=== PATIENT | female | born 1985 | race African-American/Black ===

== ENCOUNTER 2017-03-19 09:00 | Emergency (ER) | payer SELFPAY ==
[~2017-03-19] VITALS: Ht 167.6 cm; Wt 68.0 kg
[2017-03-19 09:18] VITALS: BP 120/64
--- NOTE | 2017-03-19 09:18 | PHYS DOC ---
Adult General Chief Complaint Chief Complaint: BACK PAIN OR INJURY [facility] HPI Patient is a 31 year old -[place] female who presents with diffuse muscle aches around her back. 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 She states she is on her feet a lot extends to have pain from her neck all the way down. She denies any numbness or tingling in arms or legs weakness or saddle anesthesia or bladder dysfunction. She states she's been using Excedrin over the years and now it isn't working anymore. She does have [place] [facility] [place] She denies being on any medicines allergic to any medicines or any surgical history. Review of Systems Review of Systems Constitutional: Denies fever or chills [] Eyes: Denies change in visual acuity, redness, or eye pain [] HENT: Denies nasal congestion or sore throat [] Respiratory: Denies cough or shortness of breath [] Cardiovascular: No additional information not addressed in HPI [] GI: Denies abdominal pain, nausea, vomiting, bloody stools or diarrhea [] : Denies dysuria or hematuria [] Musculoskeletal: Denies back pain or joint pain [] Integument: Denies rash or skin lesions [] Neurologic: Denies headache, focal weakness or sensory changes [] Endocrine: Denies polyuria or polydipsia [] Allergies Allergies Allergies Coded Allergies Type Severity Reaction Last Updated Verified No Known Drug Allergies 03/19/17 No Physical Exam Physical Exam Constitutional: Well developed, well nourished, no acute distress, non-toxic appearance. [] HENT: Normocephalic, atraumatic, bilateral external ears normal, oropharynx moist, no oral exudates, nose normal. [] Eyes: PERRLA, EOMI, conjunctiva normal, no discharge. [] Neck: Normal range of motion, no midline tenderness, mild tender palpation paraspinally, supple, no stridor. [] Cardiovascular:Heart rate regular rhythm, no murmur [] Lungs & Thorax: Bilateral breath sounds clear to auscultation [] Abdomen: Bowel sounds normal, soft, no tenderness, no masses, no pulsatile masses. [] Skin: Warm, dry, no erythema, no rash. [] Back: No midline tenderness, tender palpation paraspinally, no CVA tenderness. [ ] Extremities: No tenderness, no cyanosis, no clubbing, ROM intact, no edema. [] Neurologic: Alert and oriented X 3, normal motor function, normal sensory function, no focal deficits noted. [] Psychologic: Affect normal, judgement normal, mood normal. [] Current Patient Data Vital Signs Vital Signs Date Time Temp Pulse Resp B/P (MAP) Pulse Ox O2 Delivery O2 Flow Rate FiO2 03/19/17 09:18 99.6 76 18 99 Room Air 99.6 EKG EKG [] Radiology/Procedures Radiology/Procedures [] Impressions: Muscle spasms in her back Course & Med Decision Making Course & Med Decision Making Pertinent Labs and Imaging studies reviewed. (See chart for details) She is instructed use 600 mg of Motrin every 8 hours for next 3-5 days. She is also try Flexeril. She is warned not to drive or taking Flexeril as it can impair judgment and make her sleepy. She is to follow-up with her primary care physician. Return precautions given for worsening pain, fevers, weakness in her arms or legs or urinary incontinence. Dragon Disclaimer Dragon Disclaimer This electronic medical record was generated, in whole or in part, using a voice recognition dictation system. Departure Departure Impression: Primary Impression: Muscle spasm Disposition: 01 HOME, SELF-CARE Condition: STABLE Patient Instructions: Back Pain, Adult, [id number] Additional Instructions: Your symptoms sound muscle skeletal in nature. You can try 600 mg of Advil every 8 hours for next 3-5 days. Be sure to make sure not while taking this medicine. You can also try Flexeril which is a muscle relaxant and you can take it prior to going to bed as there is a side effect of causing sleepiness. Don't drink alcohol or goat driver a car while taking this medicine as it can make you sleepy and impair your judgment. If you have severe pain, weakness in your arms legs or numbness please return back to emergency department for further evaluation and treatment. You will need follow-up with your primary care physician within the next 1-2 weeks. Scripts Cyclobenzaprine Hcl (CYCLOBENZAPRINE HCL) 10 Mg Tablet 1 TAB PO QHS Y for MUSCLE PAIN, #20 TAB Prov: EDMAR OVALLE MD 03/19/17 EDMAR OVALLE MD Mar 19, 2017 09:18
[2017-03-19] MEDS ORDERED: CYCL10TA2 PO (09:34)
== END 2017-03-19 09:51 | disposition home or self-care (01) ==
LOC: ER 09:00
DX: M62.830 Muscle spasm of back (principal)
CPT/HCPCS: 99283

== ENCOUNTER 2017-06-02 10:35 | Emergency (ER) | payer SELFPAY ==
[~2017-06-02 10:35] MED LIST: CYCL10TA2 PO
[2017-06-02] MEDS ORDERED: IV NORMAL SALINE 1000ML BAG 1,000 ML IV ONE (11:00)
[2017-06-02 11:04] LABS: BASO # 0.1 x10^3/uL (0.0-0.2); BASO % 1 % (0-3); EOS % 1 % (0-3); HEMOGLOBIN 12.9 g/dL (12.0-15.5); LYMPH # 2.3 x10^3/uL (1.0-4.8); LYMPH % 25 % (24-48); MEAN CORPUSCULAR HEMOGLOBIN 29 pg (25-35); MEAN CORPUSCULAR HGB CONC 33 g/dL (31-37); MEAN CORPUSCULAR VOLUME 88 fL (79-100); MONO % 6 % (0-9); NEUT % 67 % (31-73); PLATELET COUNT 205 x10^3/uL (140-400); RED BLOOD COUNT 4.44 x10^6/uL (3.50-5.40); RED CELL DISTRIBUTION WIDTH 13.4 % (11.5-14.5); WHITE BLOOD COUNT 9.1 x10^3/uL (4.0-11.0)
[2017-06-02 11:06] LABS: BILIRUBIN,URINE NEGATIVE (NEG); GLUCOSE,URINE NEGATIVE (NEG); NITRITE,URINE NEGATIVE (NEG); PROTEIN,URINE NEGATIVE (NEG-TRACE); UROBILINOGEN,URINE 0.2 mg/dL (0.2 mg/dL)
[2017-06-02 11:12] LABS: BARBITURATES NEG (NEG); BENZODIAZEPINES NEG (NEG); CANNABINOIDS NEG (NEG); COCAINE NEG (NEG); METHADONE NEG (NEG); OPIATES NEG (NEG); PHENCYCLIDINE NEG (NEG)
[2017-06-02 11:13] LABS: INR 1.1 (0.8-1.1); PROTHROMBIN TIME PATIENT 13.4 SEC (11.7-14.0)
[2017-06-02 11:15] LABS: CALCIUM 9.2 mg/dL (8.5-10.1); CREATININE 0.9 mg/dL (0.6-1.0); GFR 89.6; POTASSIUM 3.5 mmol/L (3.5-5.1)
[2017-06-02 11:16] LABS: SQUAMOUS EPITHELIAL CELL,UR MOD /LPF
[2017-06-02 11:17] LABS: BACTERIA,URINE MANY /HPF (0-FEW); RBC,URINE OCC /HPF (0-2)
[2017-06-02 11:21] LABS: ALBUMIN 4.5 g/dL (3.4-5.0); ALBUMIN/GLOBULIN RATIO 1.2 (1.0-1.7); MAGNESIUM 2.3 mg/dL (1.8-2.4); TOTAL BILIRUBIN 1.2 mg/dL (0.2-1.0); TOTAL PROTEIN 8.3 g/dL (6.4-8.2)
--- NOTE | 2017-06-02 11:28 | EKG ---
[facility] [address] [place] [address] Test Date: 2017-06-02 Test Time: 10:47:32 Pat Name: NIC DAVID Department: Room: Gender: F Telephone Recorder: : [id number] Requested By: MONIE HANSON Order Number: [id number] Reading MD: Daniel Moon Measurements Intervals Bailey Rate: 91 P: 35 ND: 138 QRS: 62 QRSD: 88 T: 42 QT: 374 QTc: 462 Interpretive Statements SINUS RHYTHM INCOMPLETE RIGHT BUNDLE BRANCH BLOCK Electronically Signed On 06-07-2017 16:42:46 CHIEF MEDICAL OFFICER by Daniel Moon
[2017-06-02 11:33] LABS: CKMB MASS < 0.5 ng/mL (0.0-3.6); CREATINE KINASE 225 U/L (26-192)
--- NOTE | 2017-06-02 11:39 | PHYS DOC ---
Past Medical History Past Medical History: No Pertinent History Past Surgical History: No Surgical History Alcohol Use: None Drug Use: None Adult General Chief Complaint Chief Complaint: DIZZY/LIGHT HEADED HPI HPI Patient is a 31 year old female with history of anxiety who presents today complaining of dizziness on movement. 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 Patient denies passing out. Denies any chest pain or shortness of breath. She states her dizziness is relieved by sitting. Denies any chance she is . One week Review of Systems Review of Systems Constitutional: Denies fever or chills [] Eyes: Denies change in visual acuity, redness, or eye pain [] HENT: Denies nasal congestion or sore throat [] Respiratory: Denies cough or shortness of breath [] Cardiovascular: No additional information not addressed in HPI [] GI: Denies abdominal pain, nausea, vomiting, bloody stools or diarrhea [] : Denies dysuria or hematuria [] Musculoskeletal: Denies back pain or joint pain [] Integument: Denies rash or skin lesions [] Neurologic: Dizziness. Denies headache, focal weakness or sensory changes [] All other systems were reviewed and found to be within normal limits, except as documented in this note. Current Medications Current Medications Current Medications Medications (Trade) Dose Ordered Sig/[facility] Start Time Stop Time Status Last Admin Dose Admin Sodium Chloride 1,000 ml @ 1,000 mls/hr 1X ONCE 06/02/17 11:00 06/02/17 11:59 DC 06/02/17 12:03 1,000 MLS/HR Allergies Allergies Allergies Coded Allergies Type Severity Reaction Last Updated Verified No Known Drug Allergies 03/19/17 No Physical Exam Physical Exam Constitutional: Well developed, well nourished, no acute distress, non-toxic appearance. [] HENT: Normocephalic, atraumatic, bilateral external ears normal, oropharynx moist, no oral exudates, nose normal. [] Eyes: PERRLA, EOMI, conjunctiva normal, no discharge. [] Neck: Normal range of motion, no tenderness, supple, no stridor. [] Cardiovascular:Heart rate regular rhythm, no murmur [] Lungs & Thorax: Bilateral breath sounds clear to auscultation [] Abdomen: Bowel sounds normal, soft, no tenderness, no masses, no pulsatile masses. [] Skin: Warm, dry, no erythema, no rash. [] Back: No tenderness, no CVA tenderness. [] Extremities: No tenderness, no cyanosis, no clubbing, ROM intact, no edema. [] Neurologic: Alert and oriented X 3, normal motor function, normal sensory function, no focal deficits noted. Cranial nerves II through XII intact Psychologic: Affect normal, judgement normal, mood normal. [] Current Patient Data Lab Values Laboratory Tests Test 06/02/17 10:44 06/02/17 10:48 06/02/17 10:50 Urine Collection Type Void Urine Color Yellow Urine Clarity Clear Urine pH 7.0 Urine Specific [place] 1.020 Urine Protein Negative mg/dL (NEG-TRACE) Urine Glucose (UA) Negative mg/dL (NEG) Urine Ketones (Stick) Negative mg/dL (NEG) Urine Blood Small (NEG) Urine Nitrite Negative (NEG) Urine Bilirubin Negative (NEG) Urine Urobilinogen Dipstick 0.2 mg/dL (0.2 mg/dL) Urine Leukocyte Esterase Negative (NEG) Urine RBC Occ /HPF (0-2) Urine WBC 1-4 /HPF (0-4) Urine Squamous Epithelial Cells Mod /LPF Urine Bacteria Many /HPF (0-FEW) Urine Mucus Marked /LPF Urine Opiates Screen Neg (NEG) Urine Methadone Screen Neg (NEG) Urine Barbiturates Neg (NEG) Urine Phencyclidine Screen Neg (NEG) Urine Amphetamine/Methamphetamine Neg (NEG) Urine Benzodiazepines Screen Neg (NEG) Urine Cocaine Screen Neg (NEG) Urine Cannabinoids Screen Neg (NEG) Urine Ethyl Alcohol Neg (NEG) POC Urine HCG, Qualitative Hcg negative (Negative) White Blood Count 9.1 x10^3/uL (4.0-11.0) Red Blood Count 4.44 x10^6/uL (3.50-5.40) Hemoglobin 12.9 g/dL (12.0-15.5) Hematocrit 39.0 % (36.0-47.0) Mean Corpuscular Volume 88 fL (79-100) Mean Corpuscular Hemoglobin 29 pg (25-35) Mean Corpuscular Hemoglobin Concent 33 g/dL (31-37) Red Cell Distribution Width 13.4 % (11.5-14.5) Platelet Count 205 x10^3/uL (140-400) Neutrophils (%) (Auto) 67 % (31-73) Lymphocytes (%) (Auto) 25 % (24-48) Monocytes (%) (Auto) 6 % (0-9) Eosinophils (%) (Auto) 1 % (0-3) Basophils (%) (Auto) 1 % (0-3) Neutrophils # (Auto) 6.1 x10^3uL (1.8-7.7) Lymphocytes # (Auto) 2.3 x10^3/uL (1.0-4.8) Monocytes # (Auto) 0.5 x10^3/uL (0.0-1.1) Eosinophils # (Auto) 0.1 x10^3/uL (0.0-0.7) Basophils # (Auto) 0.1 x10^3/uL (0.0-0.2) Prothrombin Time 13.4 SEC (11.7-14.0) Prothrombin Time INR 1.1 (0.8-1.1) Sodium Level 141 mmol/L (136-145) Potassium Level 3.5 mmol/L (3.5-5.1) Chloride Level 106 mmol/L (98-107) Carbon Dioxide Level 27 mmol/L (21-32) Anion Gap 8 (6-14) Blood Urea Nitrogen 10 mg/dL (7-20) Creatinine 0.9 mg/dL (0.6-1.0) Estimated GFR (Cockcroft-Gault) 89.6 BUN/Creatinine Ratio 11 (6-20) Glucose Level 73 mg/dL (70-99) Calcium Level 9.2 mg/dL (8.5-10.1) Magnesium Level 2.3 mg/dL (1.8-2.4) Total Bilirubin 1.2 mg/dL (0.2-1.0) H Aspartate Amino Transferase (AST) 14 U/L (15-37) L Alanine Aminotransferase (ALT) 18 U/L (14-59) Alkaline Phosphatase 51 U/L (46-116) Creatine Kinase 225 U/L (26-192) H Creatine Kinase MB (Mass) < 0.5 ng/mL (0.0-3.6) Creatine Kinase MB Relative Index % (0-4) Troponin I Quantitative < 0.017 ng/mL (0.000-0.055) JH-Zsq-G-Type Natriuretic Peptide 17 pg/mL (0-124) Total Protein 8.3 g/dL (6.4-8.2) H Albumin 4.5 g/dL (3.4-5.0) Albumin/Globulin Ratio 1.2 (1.0-1.7) Lipase 260 U/L (73-393) Thyroid Stimulating Hormone (TSH) 0.587 uIU/mL (0.358-3.74) Laboratory Tests 06/02/17 10:50 Laboratory Tests 06/02/17 10:50 EKG EKG 10:[address] [facility], HR 91 no STEMI[] Radiology/Procedures Radiology/Procedures [] Course & Med Decision Making Course & Med Decision Making Pertinent Labs and Imaging studies reviewed. (See chart for details) Patient is in the ED with dizziness on ambulation that began at work. She states she is feeling better in the ED. She's been given 1 L of IV fluid. Patient's labs are negative. Will be discharged with meclizine, instructions to push fluids, change positions slowly and follow up with the PCP. Provided return precautions and discharged in stable condition. Dragon Disclaimer Dragon Disclaimer This electronic medical record was generated, in whole or in part, using a voice recognition dictation system. Departure Departure Impression: Primary Impression: Dizziness Disposition: 01 HOME, SELF-CARE Condition: STABLE Referrals: NO PCP (PCP) follow up with your doctor in one week Patient Instructions: Dizziness, [id number] Additional Instructions: You were seen with dizziness, your labs are negative for any acute findings. Change positions slowly. Push fluids. Follow-up with your doctor in 1-2 weeks. Scripts Meclizine Hcl (MECLIZINE HCL) 12.5 Mg Tablet 1 TAB PO TID Y for DIZZINESS, #15 TAB 0 Refills Prov: JACKIAlejoMONIE APRN 06/02/17 MONIE HANSON APRN Jun 02, 2017 11:39
--- NOTE | 2017-06-02 11:43 | RAD ---
Portable chest, 06/02/2017: History: Dizziness The heart size and pulmonary vascularity are normal. The lungs are clear. There is no evidence of pleural fluid. IMPRESSION: No acute cardiopulmonary abnormality is detected.
[2017-06-02] MEDS ORDERED: MECL12.52 PO (12:32)
[2017-06-02 12:40] VITALS: BP 108/64
== END 2017-06-02 12:45 | disposition home or self-care (01) ==
LOC: ER 10:35
DX: R42 Dizziness and giddiness (principal); F41.9 Anxiety disorder, unspecified
CPT/HCPCS: 36415; 71010; 80053; 80307; 81001; 81025; 82553; 83690; 83735; 83880; 84443; 84484; 85025; 85610; 93005; 99285; J7030; G0479

== ENCOUNTER 2017-08-25 18:32 | Emergency (ER) | payer SELFPAY, OTHER ==
[2017-08-25 18:59] LABS: BILIRUBIN,URINE NEGATIVE (NEG); CLARITY,URINE CLEAR; COLOR,URINE YELLOW; GLUCOSE,URINE NEGATIVE (NEG); NITRITE,URINE NEGATIVE (NEG); PROTEIN,URINE NEGATIVE (NEG-TRACE)
[2017-08-25 19:05] LABS: BACTERIA,URINE MOD /HPF (0-FEW); SQUAMOUS EPITHELIAL CELL,UR MANY /LPF; WBC,URINE 0 /HPF (0-4)
[2017-08-25] MEDS: AZITHROMYCIN 250 MG TABLET. PO ×2 (19:27)
[2017-08-25] MEDS: metroNIDAZOLE 500 MG TABLET PO ×2 (19:28)
[2017-08-25] MEDS: cefTRIAXone IM 250 MG VIAL IM ×2 (19:29)
[2017-08-27 07:15] LABS: URINE HCG POC HCG NEGATIVE (Negative)
== END 2017-08-25 19:40 | disposition home or self-care (01) ==
LOC: ER 18:32
DX: N89.8 Other specified noninflammatory disorders of vagina (principal)
CPT/HCPCS: 81001; 81025; 87491; 87591; 96372; 99284-25; J0696; Q0144

== ENCOUNTER 2017-11-22 08:29 | Emergency (ER) | payer SELFPAY | END 2017-11-22 09:00 | disposition home or self-care (01) | LOC: ER 08:29 | DX: K02.9 Dental caries, unspecified (principal) | CPT/HCPCS: 99283 ==

== ENCOUNTER 2018-02-26 14:24 | Emergency (ER) | payer SELFPAY ==
[~2018-02-26] VITALS: Ht 167.6 cm; Wt 68.0 kg
[~2018-02-26 14:24] MED LIST changes: +CLIN300C8 PO; +DOXY100T PO; +HYDR-971 PO; +MECL12.52 PO
[2018-02-26 14:43] VITALS: BP 114/64
[2018-02-26 15:02] LABS: BILIRUBIN,URINE NEGATIVE (NEG); CLARITY,URINE CLOUDY; COLOR,URINE YELLOW; NITRITE,URINE NEGATIVE (NEG); PROTEIN,URINE NEGATIVE (NEG-TRACE)
[2018-02-26 15:05] LABS: U PREG PATIENT NEGATIVE (NEG)
[2018-02-26 15:25] LABS: BACTERIA,URINE MANY /HPF (0-FEW); RBC,URINE OCC /HPF (0-2); SQUAMOUS EPITHELIAL CELL,UR MANY /LPF
[2018-02-26] MEDS ORDERED: cefTRIAXone IM 250 MG VIAL IM ONE (16:00)
[2018-02-26] MEDS ORDERED: AZITHROMYCIN 250 MG TABLET. PO ONE (16:00)
[2018-02-26] MEDS ORDERED: CEPH500C PO (17:32)
[2018-02-26] MEDS ORDERED: METR500T PO (17:32)
--- NOTE | 2018-02-26 17:34 | PHYS DOC ---
Past Medical History Past Medical History: No Pertinent History Past Surgical History: No Surgical History Alcohol Use: Occasionally Drug Use: None Adult General Chief Complaint Chief Complaint: PAIN ON URINATION HPI HPI Patient is a 32 year old [f__sex] who presents with [] Review of Systems Review of Systems Constitutional: Denies fever or chills [] Eyes: Denies change in visual acuity, redness, or eye pain [] HENT: Denies nasal congestion or sore throat [] Respiratory: Denies cough or shortness of breath [] Cardiovascular: No additional information not addressed in HPI [] GI: Denies abdominal pain, nausea, vomiting, bloody stools or diarrhea [] : Denies dysuria or hematuria [] Musculoskeletal: Denies back pain or joint pain [] Integument: Denies rash or skin lesions [] Neurologic: Denies headache, focal weakness or sensory changes [] Endocrine: Denies polyuria or polydipsia [] All other systems were reviewed and found to be within normal limits, except as documented in this note. Current Medications Current Medications Current Medications Medications (Trade) Dose Ordered Sig/Saiam Start Time Stop Time Status Last Admin Dose Admin Azithromycin (Zithromax) 1,000 mg 1X ONCE 02/26/18 16:00 02/26/18 16:01 DC 02/26/18 16:49 1,000 MG Ceftriaxone Sodium (Rocephin Im) 250 mg 1X ONCE 02/26/18 16:00 02/26/18 16:01 DC 02/26/18 16:50 250 MG Allergies Allergies Allergies Coded Allergies Type Severity Reaction Last Updated Verified No Known Drug Allergies 03/19/17 No Physical Exam Physical Exam Constitutional: Well developed, well nourished, no acute distress, non-toxic appearance. [] HENT: Normocephalic, atraumatic, bilateral external ears normal, oropharynx moist, no oral exudates, nose normal. [] Eyes: PERRLA, EOMI, conjunctiva normal, no discharge. [] Neck: Normal range of motion, no tenderness, supple, no stridor. [] Cardiovascular:Heart rate regular rhythm, no murmur [] Lungs & Thorax: Bilateral breath sounds clear to auscultation [] Abdomen: Bowel sounds normal, soft, no tenderness, no masses, no pulsatile masses. [] Skin: Warm, dry, no erythema, no rash. [] Back: No tenderness, no CVA tenderness. [] Extremities: No tenderness, no cyanosis, no clubbing, ROM intact, no edema. [] Neurologic: Alert and oriented X 3, normal motor function, normal sensory function, no focal deficits noted. [] Psychologic: Affect normal, judgement normal, mood normal. [] Current Patient Data Vital Signs Vital Signs Date Time Temp Pulse Resp B/P (MAP) Pulse Ox O2 Delivery O2 Flow Rate FiO2 02/26/18 14:43 98.5 81 14 114/64 (81) Room Air 98.5 Lab Values Laboratory Tests Test 02/26/18 14:33 Urine Collection Type Unknown Urine Color Yellow Urine Clarity Cloudy Urine pH 7.0 Urine Specific [place] 1.025 Urine Protein Negative mg/dL (NEG-TRACE) Urine Glucose (UA) Negative mg/dL (NEG) Urine Ketones (Stick) Trace mg/dL (NEG) Urine Blood Negative (NEG) Urine Nitrite Negative (NEG) Urine Bilirubin Negative (NEG) Urine Urobilinogen Dipstick 1.0 mg/dL (0.2 mg/dL) Urine Leukocyte Esterase Moderate (NEG) Urine RBC Occ /HPF (0-2) Urine WBC 5-10 /HPF (0-4) Urine Squamous Epithelial Cells Many /LPF Urine Bacteria Many /HPF (0-FEW) Urine Mucus Mod /LPF Urine Test Negative (NEG) Microbiology 02/26/18 Wet Prep - Final, Complete EKG EKG [] Radiology/Procedures Radiology/Procedures 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 (See chart for details) [] Dragon Disclaimer Dragon Disclaimer This electronic medical record was generated, in whole or in part, using a voice recognition dictation system. Departure Departure Impression: Primary Impression: Urinary tract infection Additional Impressions: Bacterial vaginosis Contact with and (suspected) exposure to infections with a predominantly sexual mode of transmission Disposition: HOME, SELF-CARE Condition: STABLE Referrals: UNKNOWN PCP NAME (PCP) Patient Instructions: Bacterial Vaginosis, [id number], Sexually Transmitted Disease, Ecri-[id number], Urinary Tract Infection, Eucf-[id number] Additional Instructions: Fill Prescriptions and use as directed. You were treated prophylactically for a sexually transmitted infection. Avoid having intercourse until the results of gonorrhea and chlamydia testing are available. These results will not be available for 48 hours. If one or both of these tests is positive, you need to refrain from intercourse for approximately 2 weeks following the treatment of any current partners. Increase fluids, follow up with your Primary care provider in 1-2 days. Return to the ER if your symptoms worsen. Scripts Cephalexin (CEPHALEXIN) 500 Mg Capsule 1 CAP PO BID for 5 Days, #10 CAP 0 Refills Prov: JOHN WHITT APRN 02/26/18 Metronidazole (FLAGYL) 500 Mg Tablet 1 TAB PO BID for 7 Days, #14 TAB 0 Refills Prov: JOHN WHITT APRN 02/26/18 Problem Qualifiers JOHN WHITT APRN Feb 26, 2018 17:34
[2018-02-28 15:26] LABS: GC PROBE Negative (Negative)
== END 2018-02-26 17:44 | disposition home or self-care (01) ==
LOC: ER 14:24
DX: N39.0 Urinary tract infection, site not specified (principal); N76.0 Acute vaginitis; B96.89 Other specified bacterial agents as the cause of diseases classified elsewhere; Z20.2 Contact with and (suspected) exposure to infections with a predominantly sexual mode of transmission
CPT/HCPCS: 81001; 81025; 87086; 87491; 87591; 96372; 99284; J0696; Q0111; Q0144

== ENCOUNTER 2018-05-02 08:51 | Emergency (ER) | payer SELFPAY ==
[~2018-05-02] VITALS: Ht 167.6 cm; Wt 70.3 kg
[~2018-05-02 08:51] MED LIST changes: +CEPH500C PO; +METR500T PO
[2018-05-02 08:55] VITALS: BP 116/73
[2018-05-02] MEDS ORDERED: cefTRIAXone IM 250 MG VIAL IM ONE (09:15)
[2018-05-02] MEDS ORDERED: AZITHROMYCIN 250 MG TABLET. PO ONE (09:15)
[2018-05-02] MEDS ORDERED: metroNIDAZOLE 500 MG TABLET PO ONE (09:15)
--- NOTE | 2018-05-02 09:22 | PHYS DOC ---
Past Medical History Past Medical History: No Pertinent History Past Surgical History: No Surgical History Alcohol Use: Occasionally Drug Use: None Adult General Chief Complaint Chief Complaint: ABDOMINAL PAIN HPI HPI Patient is a 32 year old female with no significant medical history who presents today complaining of 8 out of 10 intermittent throbbing bilateral low back pain and pelvic pain with vaginal discharge for 1 week. Patient is concerned about STDs would like to be tested and treated. Denies any chance she is . She states she has the Implanon. Review of Systems Review of Systems Constitutional: Denies fever or chills [] Eyes: Denies change in visual acuity, redness, or eye pain [] HENT: Denies nasal congestion or sore throat [] Respiratory: Denies cough or shortness of breath [] Cardiovascular: No additional information not addressed in HPI [] GI: Reports pelvic pain, denies nausea, vomiting, bloody stools or diarrhea [] : Denies dysuria or hematuria [] Musculoskeletal: Reports low back pain, denies joint pain [] Integument: Denies rash or skin lesions [] Neurologic: Denies headache, focal weakness or sensory changes [] All other systems were reviewed and found to be within normal limits, except as documented in this note. Current Medications Current Medications Current Medications Medications (Trade) Dose Ordered Sig/Saima Start Time Stop Time Status Last Admin Dose Admin Azithromycin (Zithromax) 1,000 mg 1X ONCE 05/02/18 09:15 05/02/18 09:16 DC 05/02/18 09:24 1,000 MG Ceftriaxone Sodium (Rocephin Im) 250 mg 1X ONCE 05/02/18 09:15 05/02/18 09:16 DC 05/02/18 09:24 250 MG Metronidazole (Flagyl) 2,000 mg 1X ONCE 05/02/18 09:15 05/02/18 09:16 DC 05/02/18 09:23 2,000 MG Allergies Allergies Allergies Coded Allergies Type Severity Reaction Last Updated Verified No Known Drug Allergies 03/19/17 No Physical Exam Physical Exam Constitutional: Well developed, well nourished, no acute distress, non-toxic appearance. [] HENT: Normocephalic, atraumatic, bilateral external ears normal, oropharynx moist, no oral exudates, nose normal. [] Eyes: PERRLA, EOMI, conjunctiva normal, no discharge. [] Neck: Normal range of motion, no tenderness, supple, no stridor. [] Cardiovascular:Heart rate regular rhythm, no murmur [] Lungs & Thorax: Bilateral breath sounds clear to auscultation [] Abdomen: Bowel sounds normal, soft, no tenderness, no masses, no pulsatile masses. [] Pelvic exam External pelvic appears normal, cervix is closed, no CMT, no adnexal tenderness , trace amount of brownish discharge in the vaginal vault consistent with spotting. Skin: Warm, dry, no erythema, no rash. [] Back: No tenderness, no CVA tenderness. [] Extremities: No tenderness, no cyanosis, no clubbing, ROM intact, no edema. [] Neurologic: Alert and oriented X 3, normal motor function, normal sensory function, no focal deficits noted. [] Psychologic: Affect normal, judgement normal, mood normal. [] Current Patient Data Vital Signs Vital Signs Date Time Temp Pulse Resp B/P (MAP) Pulse Ox O2 Delivery O2 Flow Rate FiO2 05/02/18 08:55 98.5 89 17 116/73 (87) 100 Room Air 98.5 Lab Values Laboratory Tests Test 05/02/18 09:00 05/02/18 09:04 Urine Collection Type Unknown Urine Color Yellow Urine Clarity Cloudy Urine pH 5.5 Urine Specific [place] 1.025 Urine Protein Negative mg/dL (NEG-TRACE) Urine Glucose (UA) Negative mg/dL (NEG) Urine Ketones (Stick) Negative mg/dL (NEG) Urine Blood Large (NEG) Urine Nitrite Negative (NEG) Urine Bilirubin Negative (NEG) Urine Urobilinogen Dipstick 0.2 mg/dL (0.2 mg/dL) Urine Leukocyte Esterase Small (NEG) Urine RBC 0 /HPF (0-2) Urine WBC 5-10 /HPF (0-4) Urine Squamous Epithelial Cells Mod /LPF Urine Bacteria Many /HPF (0-FEW) POC Urine HCG, Qualitative Hcg negative (Negative) Microbiology 05/02/18 Wet Prep - Final, Complete EKG EKG [] Radiology/Procedures Radiology/Procedures [] Course & Med Decision Making Course & Med Decision Making Pertinent Labs and Imaging studies reviewed. (See chart for details) This is a 32-year-old female patient presenting to the ED today with pelvic pain and low back pain as well as concern for STDs. Patient was treated prophylaxis. STD education provided. Urine has small amount of leukocytes, urine also noted for moderate amount of squamous cells, this is a contaminated specimen. Wet prep is negative for any acute findings. Follow-up with PCP or OB/ RESEARCH MICROBIOLOGIST in 1-2 weeks. Tylenol or Motrin for pain. Staff Physician Addendum: I was working in the ER during the course of this patient's visit. I was available for consultation as needed, but I was not directly involved in the care of this patient. Dragon Disclaimer Dragon Disclaimer This electronic medical record was generated, in whole or in part, using a voice recognition dictation system. Departure Departure Impression: Primary Impression: Concern about STD in female without diagnosis Additional Impression: Low back pain Disposition: 01 HOME, SELF-CARE Condition: STABLE Referrals: UNKNOWN PCP NAME (PCP) Follow-up in 1-2 weeks with your own doctor or the health department as needed Patient Instructions: Back Pain, Adult Additional Instructions: You were evaluated in the emergency room for back pain and vaginal discharge as well as pelvic pain. You were treated prophylaxis for sexually transmitted diseases, do not have sex for 7 days, use protection at all times, contact all your sex partners, let them know you were treated for STDs and ask them to seek treatment too. Follow-up with your own doctor or the health department for further concerns. Problem Qualifiers Additional Impression: Low back pain Chronicity: acute Back pain laterality: bilateral Sciatica presence: without sciatica Qualified Codes: M54.5 - Low back pain VALENTINMONIE VALERIO May 02, 2018 09:22 MEENAKSHI HERNANDEZ MD May 02, 2018 16:59
[2018-05-02 09:38] LABS: BILIRUBIN,URINE NEGATIVE (NEG); CLARITY,URINE CLOUDY; NITRITE,URINE NEGATIVE (NEG); PH,URINE 5.5; PROTEIN,URINE NEGATIVE (NEG-TRACE); UROBILINOGEN,URINE 0.2 mg/dL (0.2 mg/dL)
[2018-05-02 09:46] LABS: COLOR,URINE YELLOW; SQUAMOUS EPITHELIAL CELL,UR MOD /LPF
[2018-05-02 09:47] LABS: BACTERIA,URINE MANY /HPF (0-FEW); RBC,URINE 0 /HPF (0-2)
[2018-05-03 14:27] LABS: GC PROBE Negative (Negative)
== END 2018-05-02 10:30 | disposition home or self-care (01) ==
LOC: ER 08:51
DX: M54.5 Low back pain (principal); Z20.2 Contact with and (suspected) exposure to infections with a predominantly sexual mode of transmission; R10.2 Pelvic and perineal pain; N89.8 Other specified noninflammatory disorders of vagina
CPT/HCPCS: 81001; 81025; 87491; 87591; 96372; 99284; J0696; Q0111; Q0144; 87086

== ENCOUNTER 2018-09-20 16:26 | Emergency (ER) | payer OTHER ==
[~2018-09-20] VITALS: Ht 167.6 cm; Wt 73.9 kg
[~2018-09-20 16:26] MED LIST changes: +HYDR-3164 PO; -HYDR-971 PO
--- NOTE | 2018-09-20 16:39 | PHYS DOC ---
Past Medical History Past Medical History: No Pertinent History Past Surgical History: No Surgical History Alcohol Use: Occasionally Drug Use: None Adult General Chief Complaint Chief Complaint: FOOT INJURY PAIN HPI HPI Patient is a 32 year old female presented ER today for evaluation of right foot injury at work today. Patient was working with a tomato slicer, when it fell on Her Right Foot. Patient Had Been Walking All Day, Hurt When She Walked. Review of Systems Review of Systems Constitutional: Denies fever or chills [] Eyes: Denies change in visual acuity, redness, or eye pain [] HENT: Denies nasal congestion or sore throat [] Respiratory: Denies cough or shortness of breath [] Cardiovascular: No additional information not addressed in HPI [] GI: Denies abdominal pain, nausea, vomiting, bloody stools or diarrhea [] : Denies dysuria or hematuria [] Musculoskeletal: Denies back pain, POSITIVE FOR PAIN IN RIGHT FOOT. Integument: Denies rash or skin lesions [] Neurologic: Denies headache, focal weakness or sensory changes [] Endocrine: Denies polyuria or polydipsia [] All other systems were reviewed and found to be within normal limits, except as documented in this note. Allergies Allergies Allergies Coded Allergies Type Severity Reaction Last Updated Verified No Known Drug Allergies 03/19/17 No Physical Exam Physical Exam Constitutional: Well developed, well nourished, no acute distress, non-toxic appearance. [] HENT: Normocephalic, atraumatic, bilateral external ears normal, oropharynx moist, no oral exudates, nose normal. [] Eyes: PERRLA, EOMI, conjunctiva normal, no discharge. [] Neck: Normal range of motion, no tenderness, supple, no stridor. [] Cardiovascular:Heart rate regular rhythm, no murmur [] Lungs & Thorax: Bilateral breath sounds clear to auscultation [] ] Skin: Warm, dry, no erythema, no rash. [] Extremities: There is tenderness to palpation at the RIGHT first the metatarsal bone, NO SWELLING, NO OPEN WOUND. Neurologic: Alert and oriented X 3, normal motor function, normal sensory function, no focal deficits noted. [] Psychologic: Affect normal, judgement normal, mood normal. [] Current Patient Data Vital Signs Vital Signs Date Time Temp Pulse Resp B/P (MAP) Pulse Ox O2 Delivery O2 Flow Rate FiO2 3/19/19 16:40 98.6 81 16 110/68 (82) 100 Room Air 98.6 EKG EKG [] Radiology/Procedures Radiology/Procedures [][facility] [address] [place] [address] IMAGING REPORT Signed PATIENT: NIC DAVID ACCOUNT: [id number] : 1985 LOCATION: ER AGE: 32 SEX: F EXAM STATUS: REG ER ORD. PHYSICIAN: CARLOS BARAHONA DO REASON: right foot injury, a tomato slicer dropped on her foot this AM AT WORK PROCEDURE: FOOT RIGHT 3V EXAM: AP, oblique and lateral views of the right foot DATE: 09/20/2018 4:35 PM INDICATION: right foot injury, a tomato slicer dropped on her foot this AM AT WORK COMPARISON: No Prior FINDINGS: No evidence of acute fracture or dislocation. Joint spaces are preserved without significant degenerative/proliferative change. Mild soft tissue swelling about the forefoot. No definite retained radiopaque foreign body. IMPRESSION: Soft tissue swelling without retained radiopaque foreign body or fracture. If there is persistent clinical concern for fracture, follow-up radiographs in 10-14 days is recommended. Electronically signed by: Reji Hickey MD (09/20/2018 5:05 PM) [id number] DICTATED and SIGNED BY: REJI HICKEY MD DATE: 09/20/18 1464 Course & Med Decision Making Course & Med Decision Making Pertinent Labs and Imaging studies reviewed. (See chart for details) [] Dragon Disclaimer Dragon Disclaimer This electronic medical record was generated, in whole or in part, using a voice recognition dictation system. Departure Departure Impression: Primary Impression: Contusion of right foot Disposition: HOME, SELF-CARE Condition: STABLE Referrals: NO PCP (PCP) FOLLOW UP WITH YOUR DOCTOR IN 2 WEEKS FOR REPEAT XRAY OF YOUR RIGHT FOOT IF YOU CONTINUES TO HAVE PAIN. Patient Instructions: Foot Contusion CARLOS BARAHONA DO Sep 20, 2018 16:39
[2018-09-20 16:40] VITALS: BP 110/68
--- NOTE | 2018-09-20 17:08 | RAD ---
EXAM: AP, oblique and lateral views of the right foot DATE: 09/20/2018 4:35 PM INDICATION: right foot injury, a tomato slicer dropped on her foot this AM AT WORK COMPARISON: No Prior FINDINGS: No evidence of acute fracture or dislocation. Joint spaces are preserved without significant degenerative/proliferative change. Mild soft tissue swelling about the forefoot. No definite retained radiopaque foreign body. IMPRESSION: Soft tissue swelling without retained radiopaque foreign body or fracture. If there is persistent clinical concern for fracture, follow-up radiographs in 10-14 days is recommended. Electronically signed by: Reji Hickey MD (09/20/2018 5:05 PM) [id number]
== END 2018-09-20 17:50 | disposition home or self-care (01) ==
LOC: ER 16:26
DX: S90.31XA Contusion of right foot, initial encounter (principal); W20.8XXA Other cause of strike by thrown, projected or falling object, initial encounter; Y93.89 Activity, other specified; Y92.89 Other specified places as the place of occurrence of the external cause; Y99.0 Civilian activity done for income or pay
CPT/HCPCS: 73630; 99283; 99284

== ENCOUNTER 2019-04-18 13:54 | Emergency (ER) | payer MEDICAID, OTHER ==
[~2019-04-18] VITALS: Ht 167.6 cm; Wt 76.2 kg
[2019-04-18] MEDS ORDERED: IV NORMAL SALINE 1000ML BAG 1,000 ML IV SCH (14:36)
--- NOTE | 2019-04-18 14:38 | PHYS DOC ---
Past Medical History Past Medical History: No Pertinent History Past Surgical History: No Surgical History Alcohol Use: Occasionally Drug Use: None Adult General Chief Complaint Chief Complaint: PELVIC PAIN HPI HPI Patient is a 33 year old female who presents with complaining of abdominal pain. Patient complaining of sudden onset of suprapubic pain that started about 2 hours prior to arrival to ER as a constant pain with radiation to her back and rated her pain 10 over 10.. Patient had 2 episodes of diarrhea after arrival to ER. She denies nausea and vomiting, fever and chills, urinary symptoms, . Patient states she ate at [employer] this morning and has concern for food poisoning. Review of Systems Review of Systems Constitutional: Denies fever or chills [] Eyes: Denies change in visual acuity, redness, or eye pain [] HENT: Denies nasal congestion or sore throat [] Respiratory: Denies cough or shortness of breath [] Cardiovascular: No additional information not addressed in HPI [] GI: Reports abdominal pain, diarrhea , denies nausea and vomiting[] : Denies dysuria or hematuria [] Musculoskeletal: Denies back pain or joint pain [] Integument: Denies rash or skin lesions [] Neurologic: Denies headache, focal weakness or sensory changes [] Endocrine: Denies polyuria or polydipsia [] All other systems were reviewed and found to be within normal limits, except as documented in this note. Current Medications Current Medications Current Medications Medications (Trade) Dose Ordered Sig/Saima Start Time Stop Time Status Last Admin Dose Admin Ceftriaxone Sodium (Rocephin) 1 gm 1X ONCE 04/18/19 16:00 04/18/19 16:01 DC Ketorolac Tromethamine (Toradol 30mg Vial) 30 mg 1X ONCE 04/18/19 16:00 04/18/19 16:01 DC Sodium Chloride 1,000 ml @ 1,000 mls/hr Q1H 04/18/19 14:36 04/18/19 15:35 DC Allergies Allergies Allergies Coded Allergies Type Severity Reaction Last Updated Verified No Known Drug Allergies 03/19/17 No Physical Exam Physical Exam Constitutional: Well developed, well nourished, mild distress, non-toxic appearance. [] HENT: Normocephalic, atraumatic. Eyes: PERRLA, EOMI, conjunctiva normal, no discharge. [] Neck: Normal range of motion, no tenderness, supple, no stridor. [] Cardiovascular:Heart rate regular rhythm, no murmur [] Lungs & Thorax: Bilateral breath sounds clear to auscultation [] Abdomen: Bowel sounds normal, soft, no tenderness, no masses, no pulsatile masses. [] Skin: Warm, dry, no erythema, no rash. [] Back: No tenderness, no CVA tenderness. [] Extremities: No tenderness, no cyanosis, no clubbing, ROM intact, no edema. [] Neurologic: Alert and oriented X 3, no focal deficits noted. [] Psychologic: Affect normal, judgement normal, mood normal. [] Current Patient Data Vital Signs Vital Signs Date Time Temp Pulse Resp B/P (MAP) Pulse Ox O2 Delivery O2 Flow Rate FiO2 04/18/19 14:36 97.7 80 16 124/77 (93) 96 Room Air 97.7 Lab Values Laboratory Tests Test 04/18/19 12:50 04/18/19 14:23 04/18/19 14:26 White Blood Count 7.4 x10^3/uL (4.0-11.0) Red Blood Count 4.67 x10^6/uL (3.50-5.40) Hemoglobin 13.6 g/dL (12.0-15.5) Hematocrit 41.1 % (36.0-47.0) Mean Corpuscular Volume 88 fL (79-100) Mean Corpuscular Hemoglobin 29 pg (25-35) Mean Corpuscular Hemoglobin Concent 33 g/dL (31-37) Red Cell Distribution Width 13.4 % (11.5-14.5) Platelet Count 209 x10^3/uL (140-400) Neutrophils (%) (Auto) 68 % (31-73) Lymphocytes (%) (Auto) 23 % (24-48) L Monocytes (%) (Auto) 6 % (0-9) Eosinophils (%) (Auto) 2 % (0-3) Basophils (%) (Auto) 0 % (0-3) Neutrophils # (Auto) 5.1 x10^3/uL (1.8-7.7) Lymphocytes # (Auto) 1.7 x10^3/uL (1.0-4.8) Monocytes # (Auto) 0.5 x10^3/uL (0.0-1.1) Eosinophils # (Auto) 0.1 x10^3/uL (0.0-0.7) Basophils # (Auto) 0.0 x10^3/uL (0.0-0.2) Sodium Level 140 mmol/L (136-145) Potassium Level 4.0 mmol/L (3.5-5.1) Chloride Level 102 mmol/L (98-107) Carbon Dioxide Level 27 mmol/L (21-32) Anion Gap 11 (6-14) Blood Urea Nitrogen 9 mg/dL (7-20) Creatinine 0.9 mg/dL (0.6-1.0) Estimated GFR (Cockcroft-Gault) 88.4 BUN/Creatinine Ratio 10 (6-20) Glucose Level 91 mg/dL (70-99) Calcium Level 8.8 mg/dL (8.5-10.1) Total Bilirubin 0.6 mg/dL (0.2-1.0) Aspartate Amino Transferase (AST) 21 U/L (15-37) Alanine Aminotransferase (ALT) 15 U/L (14-59) Alkaline Phosphatase 66 U/L (46-116) Total Protein 8.8 g/dL (6.4-8.2) H Albumin 4.6 g/dL (3.4-5.0) Albumin/Globulin Ratio 1.1 (1.0-1.7) Lipase 222 U/L (73-393) Urine Color Yellow Urine Clarity Clear Urine pH 8.0 Urine Specific Julian 1.020 Urine Protein Negative mg/dL (NEG-TRACE) Urine Glucose (UA) Negative mg/dL (NEG) Urine Ketones (Stick) Negative mg/dL (NEG) Urine Blood Large (NEG) Urine Nitrite Negative (NEG) Urine Bilirubin Negative (NEG) Urine Urobilinogen Dipstick 1.0 mg/dL (0.2 mg/dL) Urine Leukocyte Esterase Moderate (NEG) Urine RBC 3-5 /HPF (0-2) Urine WBC 20-40 /HPF (0-4) Urine Squamous Epithelial Cells Occ /LPF Urine Bacteria Many /HPF (0-FEW) Urine Mucus Mod /LPF POC Urine HCG, Qualitative Hcg negative (Negative) Laboratory Tests 04/18/19 12:50 Laboratory Tests 04/18/19 12:50 EKG EKG [] Radiology/Procedures Radiology/Procedures [] Course & Med Decision Making Course & Med Decision Making Pertinent Labs reviewed. (See chart for details) Evaluation of patient in ER showed 33-year-old female patient with complaining of sudden onset of abdominal pain and 2 episodes of diarrhea. Patient had unremarkable physical exam and labs except for UTI. Patient states she just treated for UTI last week with Bactrim. Patient treated with IV fluid, Toradol, Rocephin with improvement of her condition. I've spoken with the patient and/or caregivers. I've explained the patient's condition, diagnosis and treatment plan based on information available to me at this time. I've answered the patient's and/or caregivers questions and addressed any concerns. The patient and/or caregivers have a good understanding the patient's diagnosis, condition and treatment plan as can be expected at this point. Vital signs have been stabilized. The patient's condition is stable for discharge from the emergency department. The patient will pursue further outpatient evaluation with her primary care provider or other designated consulting physician as outlined in the discharge instructions. Patient and/or caregivers are agreeable to this plan of care and follow-up instructions have been explained in detail. The patient and/or caregivers have received these instructions in written format and expressed understanding of these discharge instructions. The patient and her caregivers are aware that if any significant change in condition or worsening of symptoms should prompt him to immediately return to this of the closest emergency department. If an emergent department is not readily available I would encourage him to call 911. Tamra Disclaimer Tamra Disclaimer This electronic medical record was generated, in whole or in part, using a voice recognition dictation system. Departure Departure Impression: Primary Impression: Food poisoning Additional Impression: Urinary tract infection Disposition: HOME, SELF-CARE (at 1638) Condition: IMPROVED Referrals: NO PCP (PCP) Patient Instructions: Diarrhea, Food Poisoning, Urinary Tract Infection Additional Instructions: Drink plenty of liquids Follow-up with your primary care physician in 3-5 days Return to ER if not getting better Do not eat solid food today Scripts Naproxen (NAPROSYN) 500 Mg Tablet 1 TAB PO BID for pain, #20 TAB Prov: JANET MUSTAFA MD 04/18/19 Ciprofloxacin Hcl (CIPRO) 250 Mg Tablet 1 TAB PO BID for infection, #14 TAB Prov: JANET MUSTAFA MD 04/18/19 Problem Qualifiers Additional Impression: Urinary tract infection Urinary tract infection type: site unspecified Hematuria presence: without hematuria Qualified Codes: N39.0 - Urinary tract infection, site not specified JANET MUSTAFA MD Apr 18, 2019 14:38
[2019-04-18 14:51] LABS: BILIRUBIN,URINE NEGATIVE (NEG); CLARITY,URINE CLEAR; COLOR,URINE YELLOW; NITRITE,URINE NEGATIVE (NEG); PROTEIN,URINE NEGATIVE (NEG-TRACE)
[2019-04-18 14:57] LABS: BACTERIA,URINE MANY /HPF (0-FEW); SQUAMOUS EPITHELIAL CELL,UR OCC /LPF
[2019-04-18 14:58] LABS: WBC,URINE 20-40 /HPF (0-4)
[2019-04-18 15:30] VITALS: BP 125/72
[2019-04-18 15:30] LABS: BASO % 0 % (0-3); EOS # 0.1 x10^3/uL (0.0-0.7); EOS % 2 % (0-3); HEMATOCRIT 41.1 % (36.0-47.0); HEMOGLOBIN 13.6 g/dL (12.0-15.5); LYMPH # 1.7 x10^3/uL (1.0-4.8); LYMPH % 23 % (24-48); MEAN CORPUSCULAR HEMOGLOBIN 29 pg (25-35); MEAN CORPUSCULAR HGB CONC 33 g/dL (31-37); MEAN CORPUSCULAR VOLUME 88 fL (79-100); MONO # 0.5 x10^3/uL (0.0-1.1); MONO % 6 % (0-9); NEUT # 5.1 x10^3/uL (1.8-7.7); NEUT % 68 % (31-73); PLATELET COUNT 209 x10^3/uL (140-400); RED BLOOD COUNT 4.67 x10^6/uL (3.50-5.40); RED CELL DISTRIBUTION WIDTH 13.4 % (11.5-14.5); WHITE BLOOD COUNT 7.4 x10^3/uL (4.0-11.0)
[2019-04-18 15:40] LABS: CALCIUM 8.8 mg/dL (8.5-10.1); CREATININE 0.9 mg/dL (0.6-1.0); GFR 88.4
[2019-04-18 15:45] LABS: ALBUMIN 4.6 g/dL (3.4-5.0); ALBUMIN/GLOBULIN RATIO 1.1 (1.0-1.7); TOTAL BILIRUBIN 0.6 mg/dL (0.2-1.0); TOTAL PROTEIN 8.8 g/dL (6.4-8.2)
[2019-04-18] MEDS ORDERED: KETOROLAC 30 MG/ML VIAL. IVP ONE (16:00)
[2019-04-18] MEDS ORDERED: cefTRIAXone IV Push 1 GM VIAL. IVP ONE (16:00)
[2019-04-18] MEDS ORDERED: NAPR-683 PO (16:39)
[2019-04-18] MEDS ORDERED: CIPR250T30 PO (16:39)
== END 2019-04-18 17:49 | disposition home or self-care (01) ==
LOC: ER 13:54
DX: A05.9 Bacterial foodborne intoxication, unspecified (principal); N39.0 Urinary tract infection, site not specified; R19.7 Diarrhea, unspecified
CPT/HCPCS: 36415; 80053; 81001; 81025; 83690; 85025; 87086; 96360; 99284; J7030

== ENCOUNTER 2019-05-24 08:14 | Emergency (ER) | payer MEDICAID ==
[~2019-05-24] VITALS: Ht 167.6 cm; Wt 70.8 kg
[~2019-05-24 08:14] MED LIST changes: +CIPR250T30 PO; +NAPR-683 PO
[2019-05-24 08:31] VITALS: BP 117/77
[2019-05-24] MEDS ORDERED: ALBU2.5V8 IH (09:13)
[2019-05-24] MEDS ORDERED: TRAM-48 PO (09:13)
[2019-05-24] MEDS ORDERED: BENZ100C PO (09:13)
[2019-05-24] MEDS ORDERED: AZIT250T PO (09:13)
--- NOTE | 2019-05-24 09:13 | PHYS DOC ---
Past Medical History Past Medical History: No Pertinent History Past Surgical History: No Surgical History Alcohol Use: Occasionally Drug Use: None Adult General Chief Complaint Chief Complaint: EARACHE/EAR PAIN HPI HPI Patient is a 33 year old none smoking female without history of medical problem who presents with complaint of cough and earache. Patient complaining of nonproductive cough, chest soreness and throat, sinus pressure pain and left ear pain for the last 2 days without fever, vomiting, myalgia, sick contact. Patient denies . Review of Systems Review of Systems Constitutional: Denies fever or chills [] Eyes: Denies change in visual acuity, redness, or eye pain [] HENT: Denies nasal congestion, reports earache and sore throat [] Respiratory: Denies shortness of breath, reports cough [] Cardiovascular: No additional information not addressed in HPI [] GI: Denies abdominal pain, nausea, vomiting, bloody stools or diarrhea [] : Denies dysuria or hematuria [] Musculoskeletal: Denies back pain or joint pain [] Integument: Denies rash or skin lesions [] Neurologic: Denies headache, focal weakness or sensory changes [] Endocrine: Denies polyuria or polydipsia [] All other systems were reviewed and found to be within normal limits, except as documented in this note. Allergies Allergies Allergies Coded Allergies Type Severity Reaction Last Updated Verified No Known Drug Allergies 03/19/17 No Physical Exam Physical Exam Constitutional: Well developed, well nourished, mild distress, non-toxic appearance. [] HENT: Normocephalic, atraumatic, left tympanic membrane erythema and tenderness, oropharynx moist, no oral exudates, nose normal. [] Eyes: PERRLA, EOMI, conjunctiva normal, no discharge. [] Neck: Normal range of motion, no tenderness, supple, no stridor. [] Cardiovascular:Heart rate regular rhythm, no murmur [] Lungs & Thorax: Bilateral breath sounds clear to auscultation [] Extremities: No tenderness, no cyanosis, no clubbing, ROM intact, no edema. [] Neurologic: Alert and oriented X 3, normal motor function, normal sensory function, no focal deficits noted. [] Psychologic: Affect normal, judgement normal, mood normal. [] Current Patient Data Vital Signs Vital Signs Date Time Temp Pulse Resp B/P (MAP) Pulse Ox O2 Delivery O2 Flow Rate FiO2 05/24/19 08:31 98.6 100 16 117/77 (90) 98 Room Air 98.6 EKG EKG [] Radiology/Procedures Radiology/Procedures [] Course & Med Decision Making Course & Med Decision Making Evaluation of patient in ER showed 33-year-old female patient with complaining of URI symptom and pain. Patient had left tympanic membrane erythema. Patient was afebrile. Plan to discharge patient home with diagnosis of URI and otitis media and prescription of antibiotic. I've spoken with the patient and/or caregivers. I've explained the patient's condition, diagnosis and treatment plan based on information available to me at this time. I've answered the patient's and/or caregivers questions and addressed any concerns. The patient and/or caregivers have a good understanding the dominic leggett's diagnosis, condition and treatment plan as can be expected at this point. Vital signs have been stabilized. The patient's condition is stable for discharge from the emergency department. The patient will pursue further outpatient evaluation with her primary care provider or other designated consulting physician as outlined in the discharge instructions. Patient and/or caregivers are agreeable to this plan of care and follow-up instructions have been explained in detail. The patient and/or caregivers have received these instructions in written format and expressed understanding of these discharge instructions. The patient and her caregivers are aware that if any significant change in condition or worsening of symptoms should prompt him to immediately return to this of the closest emergency department. If an emergent department is not readily available I would encourage him to call 911. Tamra Disclaimer Dragon Disclaimer This electronic medical record was generated, in whole or in part, using a voice recognition dictation system. Departure Departure Impression: Primary Impression: Left otitis media Additional Impression: Upper respiratory infection Disposition: HOME, SELF-CARE (at 0909) Condition: STABLE Referrals: NO PCP (PCP) Patient Instructions: Cough, Adult, Otitis Media, Adult, Upper Respiratory Infection, Adult Additional Instructions: Drink plenty of liquids Follow-up with your primary care physician in 3-5 days Return to ER if not getting better Scripts Azithromycin (ZITHROMAX) 250 Mg Tablet 250 MG PO DAILY for ANTI-BIOTIC, #6 TAB 0 Refills Take 2 pills by mouth for the first day and then Take 1 pill by mouth every 24 hours for the next 4 days Prov: JANET MUSTAFA MD 05/24/19 Tramadol Hcl (ULTRAM) 50 Mg Tablet 50 MG PO Q6HRS PRN for PAIN, #14 TAB 0 Refills Prov: JANET MUSTAFA MD 05/24/19 Benzonatate (TESSALON PERLE) 100 Mg Capsule 1 CAP PO TID for cough, #21 CAP Prov: JANET MUSTAFA MD 05/24/19 Albuterol Sulfate (PROAIR HFA INHALER) 8.5 Gm Hfa.aer.ad 2 PUFF IH PRN Q4-6HRS PRN for wheezing for 21 Days, #1 INHALER 0 Refills Prov: JANET MUSTAFA MD 05/24/19 Problem Qualifiers Primary Impression: Left otitis media Otitis media type: unspecified Qualified Codes: H66.92 - Otitis media, un specified, left ear Additional Impression: Upper respiratory infection URI type: unspecified URI Qualified Codes: J06.9 - Acute upper respiratory infection, unspecified JANET MUSTAFA MD May 24, 2019 09:13
== END 2019-05-24 09:48 | disposition home or self-care (01) ==
LOC: ER 08:14
DX: H66.92 Otitis media, unspecified, left ear (principal); J06.9 Acute upper respiratory infection, unspecified
CPT/HCPCS: 99283

== ENCOUNTER 2019-07-21 14:19 | Emergency (ER) | payer MEDICAID ==
[~2019-07-21] VITALS: Ht 167.6 cm; Wt 70.8 kg
[~2019-07-21 14:19] MED LIST changes: +ALBU2.5V8 IH; +AZIT250T PO; +BENZ100C PO; -MECL12.52 PO; +MECL12.573 PO; +TRAM-48 PO
[2019-07-21 14:28] VITALS: BP 99/64
[2019-07-21 14:40] LABS: BILIRUBIN,URINE NEGATIVE (NEG); CLARITY,URINE CLOUDY; COLOR,URINE YELLOW; NITRITE,URINE NEGATIVE (NEG); PH,URINE 6.5; PROTEIN,URINE NEGATIVE (NEG-TRACE); UROBILINOGEN,URINE 0.2 mg/dL (0.2 mg/dL)
[2019-07-21 15:03] LABS: BACTERIA,URINE MODERATE /HPF (0-FEW); RBC,URINE 0 /HPF (0-2); SQUAMOUS EPITHELIAL CELL,UR FEW /LPF
--- NOTE | 2019-07-21 15:04 | PHYS DOC ---
Past Medical History Past Medical History: UTI Past Surgical History: No Surgical History Alcohol Use: Occasionally Drug Use: None Adult General Chief Complaint Chief Complaint: PAIN ON URINATION HPI HPI Patient is a 33 year old Female who presents with complaints of dysuria 1 week and white vaginal discharge. She denies a Abdominal pain, nausea, vomiting, fevers, back pain. Review of Systems Review of Systems : dysuria, vaginal discharge or denies hematuria [] All other systems were reviewed and found to be within normal limits, except as documented in this note. Allergies Allergies Allergies Coded Allergies Type Severity Reaction Last Updated Verified No Known Drug Allergies 03/19/17 No Physical Exam Physical Exam Constitutional: Well developed, well nourished, no acute distress, non-toxic appearance. [] HENT: Normocephalic, atraumatic, bilateral external ears normal, oropharynx moist, no oral exudates, nose normal. [] Eyes: PERRLA, EOMI, conjunctiva normal, no discharge. [] Neck: Normal range of motion, no tenderness, supple, no stridor. [] Cardiovascular:Heart rate regular rhythm, no murmur [] Lungs & Thorax: Bilateral breath sounds clear to auscultation [] Abdomen: Bowel sounds normal, soft, no tenderness, no masses, no pulsatile masses. [] Skin: Warm, dry, no erythema, no rash. [] Back: No tenderness, no CVA tenderness. [] Extremities: No tenderness, no cyanosis, no clubbing, ROM intact, no edema. [] Neurologic: Alert and oriented X 3, normal motor function, normal sensory function, no focal deficits noted. [] Psychologic: Affect normal, judgement normal, mood normal. Normal Physical Exam [] Current Patient Data Vital Signs Vital Signs Date Time Temp Pulse Resp B/P (MAP) Pulse Ox O2 Delivery O2 Flow Rate FiO2 07/21/19 14:28 97.8 99 16 99/64 (76) 100 Room Air 97.8 Lab Values Laboratory Tests Test 07/21/19 14:36 Urine Collection Type Void Urine Color Yellow Urine Clarity Cloudy Urine pH 6.5 Urine Specific Preston 1.010 Urine Protein Negative mg/dL (NEG-TRACE) Urine Glucose (UA) Negative mg/dL (NEG) Urine Ketones (Stick) Negative mg/dL (NEG) Urine Blood Negative (NEG) Urine Nitrite Negative (NEG) Urine Bilirubin Negative (NEG) Urine Urobilinogen Dipstick 0.2 mg/dL (0.2 mg/dL) Urine Leukocyte Esterase Negative (NEG) Urine RBC 0 /HPF (0-2) Urine WBC 5-10 /HPF (0-4) Urine Squamous Epithelial Cells Few /LPF Urine Bacteria Moderate /HPF (0-FEW) Urine Mucus Slight /LPF EKG EKG [] Radiology/Procedures Radiology/Procedures [] Course & Med Decision Making Course & Med Decision Making Upon doing further assessment the patient states that she is not wanting the pelvic exam because there is a dentist appointment for her son that she needs to be at. She asked what we are looking for with the pelvic exam. I explained that we do a Chlamydia gonorrhea and check for yeast and bacterial vaginosis. Patient gave a urine specimen which has been sent to lab at the results are not back yet. Patient states that she has to leave and did not know that this ER visit was given a take that long. Abdomen is soft and nontender. Vital signs within normal limits. No CVA tenderness. Ambulatory with a steady gait. Speaks in full clear sentences. Skin pink warm and dry. Patient is leaving AMA. Patient is asking if there was something we could just give her and I explained that I would not know what I am treating with out proper testing. Dragon Disclaimer Dragon Disclaimer This electronic medical record was generated, in whole or in part, using a voice recognition dictation system. Departure Departure Impression: Primary Impression: Dysuria Additional Impression: Vaginal discharge Disposition: 07 AGAINST MEDICAL ADVICE Condition: STABLE Referrals: NO PCP (PCP) Problem Qualifiers [employer] Jul 21, 2019 15:04
[2019-07-24 19:09] LABS: GC PROBE Negative (Negative)
== END 2019-07-21 14:59 | disposition left against medical advice (07) ==
LOC: ER 14:19
DX: R30.0 Dysuria (principal); N89.8 Other specified noninflammatory disorders of vagina; Z87.440 Personal history of urinary (tract) infections
CPT/HCPCS: 81001; 87086; 87491; 87591; 99284; Q0111

== ENCOUNTER 2019-07-21 16:06 | Emergency (ER) | payer MEDICAID ==
[~2019-07-21] VITALS: Ht 167.6 cm; Wt 70.8 kg
[2019-07-21 16:45] VITALS: BP 123/65
--- NOTE | 2019-07-21 17:05 | PHYS DOC ---
Past Medical History Past Medical History: UTI Past Surgical History: No Surgical History Alcohol Use: Occasionally Drug Use: None Adult General Chief Complaint Chief Complaint: PAIN ON URINATION HPI HPI Patient is a 33 year old Female who presents with complaints of dysuria 1 week and white vaginal discharge. She denies a Abdominal pain, nausea, vomiting, fevers, back pain. Patient was here earlier left AMA because she had a dental appointment. A urine was collected at visit earlier today and has resulted. It is contaminated. Review of Systems Review of Systems : dysuria, white vaginal discharge or denies hematuria [] All other systems were reviewed and found to be within normal limits, except as documented in this note. Allergies Allergies Allergies Coded Allergies Type Severity Reaction Last Updated Verified No Known Drug Allergies 03/19/17 No Physical Exam Physical Exam Constitutional: Well developed, well nourished, no acute distress, non-toxic appearance. [] HENT: Normocephalic, atraumatic, bilateral external ears normal, oropharynx moist, no oral exudates, nose normal. [] Eyes: PERRLA, EOMI, conjunctiva normal, no discharge. [] Neck: Normal range of motion, no tenderness, supple, no stridor. [] Cardiovascular:Heart rate regular rhythm, no murmur [] Lungs & Thorax: Bilateral breath sounds clear to auscultation [] Abdomen: Bowel sounds normal, soft, no tenderness, no masses, no pulsatile masses. [] Skin: Warm, dry, no erythema, no rash. [] Back: No tenderness, no CVA tenderness. [] Extremities: No tenderness, no cyanosis, no clubbing, ROM intact, no edema. [] Neurologic: Alert and oriented X 3, normal motor function, normal sensory function, no focal deficits noted. [] Psychologic: Affect normal, judgement normal, mood normal. Normal Physical Exam[] Current Patient Data Vital Signs Vital Signs Date Time Temp Pulse Resp B/P (MAP) Pulse Ox O2 Delivery O2 Flow Rate FiO2 07/21/19 16:45 98.5 92 16 123/65 (84) 99 Room Air 98.5 EKG EKG [] Radiology/Procedures Radiology/Procedures [] Course & Med Decision Making Course & Med Decision Making Abdominal soft and nontender. No CVA tenderness. Vital signs within normal limits. Denies any fevers, nausea, vomiting, abdominal pain, chest pain, shortness of air, cough, recent illness, back pain. Patient states that she does not have any 60 transmitted disease concerns this time. She states that she does not wish to be treated at this time. Chlamydia and gonorrhea and wet prep are sent to lab. Pelvic Exam: Deck Engine Operator present Abdomen: Nontender External Genitalia: Normal Skin Speculum: Normal vaginal mucosa, White cervical discharge Bimanual: No adnexal masses or tenderness, No CMT Dragon Disclaimer Dragon Disclaimer This electronic medical record was generated, in whole or in part, using a voice recognition dictation system. Departure Departure Impression: Primary Impression: Vaginal discharge Additional Impression: Dysuria Disposition: HOME, SELF-CARE Condition: STABLE Referrals: NO PCP (PCP) Patient Instructions: Dysuria-Brief Additional Instructions: Follow-up with primary care provider or ankle patch molder if concerns persist. Drink plenty of fluids. Problem Qualifiers INOCENCIA WEAVER APRN Jul 21, 2019 17:05
== END 2019-07-21 18:20 | disposition home or self-care (01) ==
LOC: ER 16:06
DX: N89.8 Other specified noninflammatory disorders of vagina (principal); R30.0 Dysuria; Z87.440 Personal history of urinary (tract) infections
CPT/HCPCS: 99283

== ENCOUNTER 2019-07-23 23:59 | Emergency (ER) | payer MEDICAID ==
[2019-07-24 00:27] LABS: BILIRUBIN,URINE NEGATIVE (NEG); CLARITY,URINE CLEAR; COLOR,URINE YELLOW; NITRITE,URINE NEGATIVE (NEG); PROTEIN,URINE NEGATIVE (NEG-TRACE)
[2019-07-24 00:41] LABS: BACTERIA,URINE MANY /HPF (0-FEW); RBC,URINE 0 /HPF (0-2)
[2019-07-24 00:42] LABS: SQUAMOUS EPITHELIAL CELL,UR MOD /LPF
[2019-07-24 02:45] VITALS: BP 109/71
[2019-07-24] MEDS ORDERED: cefTRIAXone IM 250 MG VIAL IM ONE (03:00)
[2019-07-24] MEDS ORDERED: ACETAMINOPHEN 500 MG TABLET PO ONE (03:00)
[2019-07-24] MEDS ORDERED: AZITHROMYCIN 250 MG TABLET. PO ONE (03:00)
--- NOTE | 2019-07-24 03:56 | PHYS DOC ---
Past Medical History Past Medical History: No Pertinent History, UTI Past Surgical History: No Surgical History Alcohol Use: Occasionally Drug Use: None Adult General Chief Complaint Chief Complaint: FLANK PAIN HPI HPI Patient is a 33 year old low back pain, pelvic cramping, vaginal discharge 3 days after unprotected intercourse. No fevers chills, sweats. Reports mild dysuria. No hematuria. No nausea or vomiting. No other acute symptoms or complaints [] Review of Systems Review of Systems ROS as per HPI All other systems were reviewed and found to be within normal limits, except as documented in this note. Current Medications Current Medications Current Medications Medications (Trade) Dose Ordered Sig/Saima Start Time Stop Time Status Last Admin Dose Admin Acetaminophen (Tylenol) 1,000 mg 1X ONCE 07/24/19 03:00 07/24/19 03:01 DC Azithromycin (Zithromax) 1,000 mg 1X ONCE 07/24/19 03:00 07/24/19 03:01 DC Ceftriaxone Sodium (Rocephin Im) 250 mg 1X ONCE 07/24/19 03:00 07/24/19 03:01 DC Allergies Allergies Allergies Coded Allergies Type Severity Reaction Last Updated Verified No Known Drug Allergies 03/19/17 No Physical Exam Physical Exam Constitutional: Well developed, well nourished, no acute distress. [] HENT: Normocephalic, atraumatic, bilateral external ears normal, oropharynx moist, nose normal. [] Eyes: PERRLA, EOMI, conjunctiva normal. [] Neck: Normal range of motion, no tenderness. [] Cardiovascular:Heart rate regular rhythm, no murmur [] Lungs & Thorax: Bilateral breath sounds clear to auscultation [] Abdomen: Bowel sounds normal, soft, no tenderness. [] Skin: Warm, dry. [] Back: No tenderness. [] Extremities: No tenderness,no edema. [] Neurologic: Alert and oriented X 3, normal motor function, normal sensory function, no focal deficits noted. [] Psychologic: Affect normal, judgement normal, mood normal. [] Current Patient Data Vital Signs Vital Signs Date Time Temp Pulse Resp B/P (MAP) Pulse Ox O2 Delivery O2 Flow Rate FiO2 07/24/19 02:45 88 16 109/71 (84) 100 Room Air 07/24/19 00:45 98.1 98.1 Lab Values Laboratory Tests Test 07/24/19 00:05 Urine Collection Type Unknown Urine Color Yellow Urine Clarity Clear Urine pH 6.0 Urine Specific [place] 1.020 Urine Protein Negative mg/dL (NEG-TRACE) Urine Glucose (UA) Negative mg/dL (NEG) Urine Ketones (Stick) Negative mg/dL (NEG) Urine Blood Trace (NEG) Urine Nitrite Negative (NEG) Urine Bilirubin Negative (NEG) Urine Urobilinogen Dipstick 1.0 mg/dL (0.2 mg/dL) Urine Leukocyte Esterase Negative (NEG) Urine RBC 0 /HPF (0-2) Urine WBC 5-10 /HPF (0-4) Urine Squamous Epithelial Cells Mod /LPF Urine Bacteria Many /HPF (0-FEW) Urine Mucus Marked /LPF Microbiology 07/24/19 Wet Prep - Final, Complete EKG EKG [] Radiology/Procedures Radiology/Procedures [] Course & Med Decision Making Course & Med Decision Making Pertinent Labs and Imaging studies reviewed. (See chart for details) [Minimally symptomatic on exam. Wet prep negative. IM Rocephin and oral Zithromax ordered but not given prior to departure. Apparently, there was a delay in order system in the patient was discharged prior to medications being administered. Attempts to phone the patient were unsuccessful as the recently updated phone number was disconnected. ] Dragon Disclaimer Dragon Disclaimer This electronic medical record was generated, in whole or in part, using a voice recognition dictation system. Departure Departure Impression: Primary Impression: Vaginal discharge Additional Impression: Low back pain Disposition: HOME, SELF-CARE Condition: IMPROVED Referrals: UNKNOWN PCP NAME (PCP) Patient Instructions: Pelvic Pain, Female Additional Instructions: Take Tylenol for low back pain and follow up with your PCP or INTERNET AND E BUSINESS PROJECT MANAGER in 2-3 days for culture results. Problem Qualifiers YAS FRANCO DO Jul 24, 2019 03:56
[2019-07-25 19:09] LABS: GC PROBE Negative (Negative)
== END 2019-07-24 02:46 | disposition home or self-care (01) ==
LOC: ER 23:59
DX: N89.8 Other specified noninflammatory disorders of vagina (principal); M54.5 Low back pain; R10.2 Pelvic and perineal pain; R30.0 Dysuria; Z87.440 Personal history of urinary (tract) infections
CPT/HCPCS: 81001; 81025; 87086; 87491; 87591; 99284; Q0111

== ENCOUNTER 2019-07-25 17:00 | Emergency (ER) | payer MEDICAID ==
[~2019-07-25] VITALS: Ht 167.6 cm; Wt 69.5 kg
[2019-07-25 17:05] VITALS: BP 121/76
[2019-07-25] MEDS ORDERED: cefTRIAXone IM 250 MG VIAL IM ONE (17:15)
[2019-07-25] MEDS ORDERED: AZITHROMYCIN 250 MG TABLET. PO ONE (17:15)
== END 2019-07-25 17:08 | disposition left against medical advice (07) ==
LOC: ER 17:00
DX: M54.5 Low back pain (principal); Z53.21 Procedure and treatment not carried out due to patient leaving prior to being seen by health care provider
CPT/HCPCS: J0696; Q0144

== ENCOUNTER 2019-07-30 12:57 | Emergency (ER) | payer MEDICAID ==
[~2019-07-30] VITALS: Ht 167.6 cm; Wt 70.9 kg
[2019-07-30 13:49] VITALS: BP 121/76
[2019-07-30] MEDS ORDERED: AZITHROMYCIN 250 MG TABLET. PO ONE (14:30)
[2019-07-30] MEDS ORDERED: cefTRIAXone IM 250 MG VIAL IM ONE (14:30)
--- NOTE | 2019-07-30 14:32 | PHYS DOC ---
Past Medical History Past Medical History: STD, UTI Past Surgical History: No Surgical History Alcohol Use: Occasionally Drug Use: None Adult General Chief Complaint Chief Complaint: SEXUALLY TRANSMITTED DISEASE HPI HPI Patient is a 33 year old female who complains of lower abdominal pain, dysuria for the last week and had. Patient states she had been seen in her primary care office [facility], and had been told she has been diagnosed with gonorrhea. St at[facility] she was unable to get into their office for treatment, states she continues to have some malaise, abdominal discomfort, dysuria. States she continues to have some vaginal discharge. States she has not been in contact with her partner, reports she has not had any contact with them for a while does not contact him. Does not know if he is having any symptoms. Review of Systems Review of Systems Constitutional: Denies fever or chills does report malaise [] Eyes: Denies change in visual acuity, redness, or eye pain [] HENT: Denies nasal congestion or sore throat [] Respiratory: Denies cough or shortness of breath [] Cardiovascular: No additional information not addressed in HPI [] GI: Denies abdominal pain, nausea, vomiting, bloody stools or diarrhea [] : Denies hematuria does report burning with urination, vaginal discharge.[] Musculoskeletal: Denies back pain or joint pain [] Integument: Denies rash or skin lesions [] Neurologic: Denies headache, focal weakness or sensory changes [] Endocrine: Denies polyuria or polydipsia [] All other systems were reviewed and found to be within normal limits, except as documented in this note. Allergies Allergies Allergies Coded Allergies Type Severity Reaction Last Updated Verified No Known Drug Allergies 03/19/17 No Physical Exam Physical Exam Constitutional: Well developed, well nourished, no acute distress, non-toxic appearance. [] Cardiovascular:Heart rate regular rhythm, no murmur [] Lungs & Thorax: Bilateral breath sounds clear to auscultation [] Abdomen: Bowel sounds normal, soft, no tenderness, no masses, no pulsatile masses. [] Skin: Warm, dry, no erythema, no rash. [] Back: No tenderness, no CVA tenderness. [] [] Psychologic: Affect normal, judgement normal, mood normal. [] Current Patient Data Vital Signs Vital Signs Date Time Temp Pulse Resp B/P (MAP) Pulse Ox O2 Delivery O2 Flow Rate FiO2 07/30/19 13:49 98.6 71 16 121/76 (91) 99 Room Air 98.6 EKG EKG [] Radiology/Procedures Radiology/Procedures [] Course & Med Decision Making Course & Med Decision Making Pertinent Labs and Imaging studies reviewed. (See chart for details) [] Dragon Disclaimer Dragon Disclaimer This electronic medical record was generated, in whole or in part, using a voice recognition dictation system. Departure Departure Impression: Primary Impression: Gonorrhea Referrals: UNKNOWN PCP NAME (PCP) Patient Instructions: Gonorrhea, Females and Males Additional Instructions: As we discussed, try to reach out year for partner and didn't let them know that they need to be evaluated and treated for gonorrhea. Continue to take Tylenol or ibuprofen as needed for any discomfort. Avoid any alcohol after taking the medications we have given any here in the hospital today. For at least 24 hours. For the next 7 days, make sure using barrier methods such as condoms if you're having to have sexual intercourse again. Continue to consider using barrier methods for future partner to make sure risk of future STDs from partners ALYSE AHN APRN Jul 30, 2019 14:32
== END 2019-07-30 14:54 | disposition home or self-care (01) ==
LOC: ER 12:57
DX: A54.9 Gonococcal infection, unspecified (principal); Z87.440 Personal history of urinary (tract) infections
CPT/HCPCS: 96372; 99283; J0696; Q0144

== ENCOUNTER 2021-01-05 11:17 | Emergency (ER) | payer MEDICAID ==
[~2021-01-05] VITALS: Ht 167.6 cm; Wt 79.5 kg
[~2021-01-05 11:17] MED LIST changes: -CLIN300C8 PO; +CLIN300C9 PO; -MECL12.573 PO; +MECL12.582 PO
[2021-01-05 11:26] VITALS: BP 125/72
[2021-01-05] MEDS ORDERED: MUPI22OI2 TP (11:56)
[2021-01-05] MEDS ORDERED: PRED50TA PO (11:56)
[2021-01-05] MEDS ORDERED: LORA10TA68 PO (11:56)
--- NOTE | 2021-01-05 11:56 | PHYS DOC ---
Past Medical History Past Medical History: STD, UTI (MONIE HANSON EMERGENCY MANAGEMENT COORDINATOR) Past Surgical History: No Surgical History (MONIE HANSON EMERGENCY MANAGEMENT COORDINATOR) Smoking Status: Light Tobacco Smoker Alcohol Use: Occasionally Drug Use: None (MONIE HANSON APRN) General Adult EDM: Chief Complaint: INSECT BITE HPI: HPI: Patient is a 35 year old female who presents to the ED today with insect bites to the right thigh and left lower extremity. Patient noted the insect bites last night, she believes this are spider bites. She states she moved into a new apartment and has noted several brown recluse spiders which she killed. Patient denies any difficulty breathing. Denies any throat or tongue swelling. Denies any fever. (MONIE HANSON APRN) Review of Systems: Review of Systems: Constitutional: Denies fever or chills. [] Musculoskeletal: Denies back pain or joint pain. [] Integument: Reports insect bites Neurologic: Denies headache, focal weakness or sensory changes. [] Psychiatric: Denies depression or anxiety. [] (MONIE HANSON EMERGENCY MANAGEMENT COORDINATOR) Heart Score: C/O Chest Pain: N/A Risk Factors: Risk Factors: DM, Current or recent (<one month) smoker, HTN, HLP, family history of CAD, obesity. Risk Scores: Score 0 - 3: 2.5% MACE over next 6 weeks - Discharge Home Score 4 - 6: 20.3% MACE over next 6 weeks - Admit for Clinical Observation Score 7 - 10: 72.7% MACE over next 6 weeks - Early Invasive Strategies (MONIE HANSON EMERGENCY MANAGEMENT COORDINATOR) Allergies: Allergies: Allergies Coded Allergies Type Severity Reaction Last Updated Verified No Known Drug Allergies 03/19/17 No (MONIE HANSON EMERGENCY MANAGEMENT COORDINATOR) Physical Exam: PE: Constitutional: Well developed, well nourished, no acute distress, non-toxic appearance. [] Cardiovascular:Heart rate regular rhythm, no murmur [] Lungs & Thorax: Bilateral breath sounds clear to auscultation [] Abdomen: Bowel sounds normal, soft, no tenderness, no masses, no pulsatile masses. [] Skin: Left lateral calf with 2 puncture wounds with trace erythema. The areas are firm and tender to touch. Right inner lower thigh with an area of erythema roughly 0.5 x 0.5 cm. No drainage. Tenderness to the region. Back: No tenderness, no CVA tenderness. [] Extremities: No tenderness, no cyanosis, no clubbing, ROM intact, no edema. [] Neurologic: Alert and oriented X 3, normal motor function, normal sensory function, no focal deficits noted. [] Psychologic: Affect normal, judgement normal, mood normal. [] (MONIE HANSON EMERGENCY MANAGEMENT COORDINATOR) Current Patient Data: Vital Signs: Vital Signs Date Time Temp Pulse Resp B/P (MAP) Pulse Ox O2 Delivery O2 Flow Rate FiO2 01/05/21 11:26 98.6 96 16 125/72 (89) 99 Room Air 98.6 (MONIE HANSON EMERGENCY MANAGEMENT COORDINATOR) EKG: EKG: [] (MONIE HANSON EMERGENCY MANAGEMENT COORDINATOR) Radiology/Procedures: Radiology/Procedures: [] (MONIE HANSON APRN) Course & Med Decision Making: Course & Med Decision Making Pertinent Labs and Imaging studies reviewed. (See chart for details) This is a 35-year-old female patient presenting to the ED today with insect bites to the right lower extremity and right inner thigh. She believes this was findings. The areas are not necrotic. Patient's tetanus is up-to-date. Discharged with prednisone, Bactroban ointment and Zyrtec. Follow-up with primary care doctor next week. Provided return precautions. (MONIE HANSON EMERGENCY MANAGEMENT COORDINATOR) Course & Med Decision Making I oversaw on the above date of service of this patient. This patient was evaluated, examined, treated, and dispositioned from the emergency department by the mid-level practitioner. Although I was working at the time and available for consultation, no assistance was requested and I did not see or immediately direct the care of this patient. I reviewed note and agree to findings, plan of care, and disposition as stated. Electronically signed, Tru Vásquez DO (TRU VÁSQUEZ DO) Tamra Disclaimer: Tamra Disclaimer: This electronic medical record was generated, in whole or in part, using a voice recognition dictation system. (MONIE HANSON EMERGENCY MANAGEMENT COORDINATOR) Departure Departure Impression: Primary Impression: Insect bites Qualified Codes: S80.861A - Insect bite (nonvenomous), right lower leg, initial encounter; W57.XXXA - Bitten or stung by nonvenomous insect and other nonvenomous arthropods, initial encounter Disposition: HOME / SELF CARE / HOMELESS Condition: STABLE Referrals: UNKNOWN PCP NAME (PCP) Follow-up with your doctor in 1 to 2 weeks Patient Instructions: Insect Bite, [id number] Additional Instructions: You were seen with insect bites. Please use the prescribed medications as ordered. Please keep the areas clean and dry. You can apply warm compresses to the area twice a day. Follow-up with your primary care doctor in 1 to 2 weeks. Scripts Prednisone (PREDNISONE) 50 Mg Tablet 1 TAB PO DAILY, #5 TAB Prov: MONIE HANSON APRN 01/05/21 Loratadine (CLARITIN) 10 Mg Tablet 1 TAB PO DAILY for allergy symptoms for 30 Days, #30 TAB 0 Refills Prov: MONIE HANSON APRN 01/05/21 Mupirocin (MUPIROCIN OINTMENT) 22 Gm Oint...g. 1 KATHYRN TP TID for WOUND CARE, #1 EACH Prov: MONIE HANSON APRN 01/05/21 MONIE HANSON APRN Jan 05, 2021 11:56 TRU VÁSQUEZ DO Jan 06, 2021 07:14
== END 2021-01-05 12:20 | disposition home or self-care (01) ==
LOC: ER 11:17
DX: S80.861A Insect bite (nonvenomous), right lower leg, initial encounter (principal); Z72.0 Tobacco use; W57.XXXA Bitten or stung by nonvenomous insect and other nonvenomous arthropods, initial encounter; Y93.89 Activity, other specified; Y92.89 Other specified places as the place of occurrence of the external cause; Y99.8 Other external cause status
CPT/HCPCS: 96374; 99283; 99285-25

== ENCOUNTER 2021-04-11 09:13 | Emergency (ER) | payer MEDICAID ==
[~2021-04-11] VITALS: Ht 167.6 cm; Wt 78.6 kg
[~2021-04-11 09:13] MED LIST changes: +CLIN-94 PO; -CLIN300C9 PO; +LORA10TA68 PO; +MUPI22OI2 TP; +PRED50TA PO
[2021-04-11 09:36] VITALS: BP 115/63
[2021-04-11] MEDS ORDERED: AZITHROMYCIN 250 MG TABLET. PO ONE (10:15)
[2021-04-11] MEDS ORDERED: cefTRIAXone IM 500 MG VIAL. IM ONE (10:15)
--- NOTE | 2021-04-11 10:23 | PHYS DOC ---
Past Medical History Past Medical History: STD, UTI (SAMARA MEJIA APRN) Past Surgical History: No Surgical History (SAMARA MEJIA APRN) Smoking Status: Light Tobacco Smoker Alcohol Use: Occasionally Drug Use: None (SAMARA MEJIA APRN) General Adult EDM: Chief Complaint: VAGINAL PROBLEM HPI: HPI: patient is a 35-year-old female presents today with a 1 to 2-week history of vaginal discharge, patient states that boyfriend got results yesterday from his STI results that he was positive for GC and chlamydia as well, patient presents today for treatment. Patient states she has a past medical history of STIs. Patient also has some dysuria complaints as well. [] (SAMARA MEJIA APRN) Review of Systems: Review of Systems: Constitutional: Denies fever or chills. [] Eyes: Denies change in visual acuity. [] HENT: Denies nasal congestion or sore throat. [] Respiratory: Denies cough or shortness of breath. [] Cardiovascular: Denies chest pain or edema. [] GI: abdominal pain.[] : dysuria, vaginal discharge[] Musculoskeletal: Denies back pain or joint pain. [] Integument: Denies rash. [] Neurologic: Denies headache, focal weakness or sensory changes. [] Endocrine: Denies polyuria or polydipsia. [] Lymphatic: Denies swollen glands. [] Psychiatric: Denies depression or anxiety. [] (SAMARA MEJIA AUDIO NARRATOR) Heart Score: C/O Chest Pain: N/A Risk Factors: Risk Factors: DM, Current or recent (<one month) smoker, HTN, HLP, family history of CAD, obesity. Risk Scores: Score 0 - 3: 2.5% MACE over next 6 weeks - Discharge Home Score 4 - 6: 20.3% MACE over next 6 weeks - Admit for Clinical Observation Score 7 - 10: 72.7% MACE over next 6 weeks - Early Invasive Strategies (SAMARA MEJIA APRN) Current Medications: Current Medications Medications (Trade) Dose Ordered Sig/Saima Start Time Stop Time Status Last Admin Dose Admin Azithromycin (Zithromax) 1,000 mg 1X ONCE 04/11/21 10:15 04/11/21 10:16 DC Ceftriaxone Sodium (Rocephin Im) 500 mg 1X ONCE 04/11/21 10:15 04/11/21 10:16 DC (SAMARA MEJIA APRN) Allergies: Allergies: Allergies Coded Allergies Type Severity Reaction Last Updated Verified No Known Drug Allergies 03/19/17 No (SAMARA MEJIA APRN) Physical Exam: PE: Constitutional: Well developed, well nourished, no acute distress, non-toxic appearance. [] HENT: Normocephalic, atraumatic, bilateral external ears normal, oropharynx moist, no oral exudates, nose normal. [] Eyes: PERRLA, EOMI, conjunctiva normal, no discharge. [] Neck: Normal range of motion, no tenderness, supple, no stridor. [] Cardiovascular:Heart rate regular rhythm, no murmur [] Lungs & Thorax: Bilateral breath sounds clear to auscultation [] Abdomen: Bowel sounds normal, soft, tenderness noted lower abdomen with palpation, white vaginal discharge noted.no masses, [] Skin: Warm, dry, no erythema, no rash. [] Back: No tenderness, no CVA tenderness. [] Extremities: No tenderness, no cyanosis, no clubbing, ROM intact, no edema. [] Neurologic: Alert and oriented X 3, normal motor function, normal sensory function, no focal deficits noted. [] Psychologic: Affect normal, judgement normal, mood normal. [] Pelvic exam completed: Verbal consent for pelvic exam obtained from patient Vaginal discharge moderate amount noted Cultures obtained bimanual exam completed with no cervical tenderness noted with movement. Patient tolerated well. (SAMAAR MEJIA APRN) Current Patient Data: Labs: Laboratory Tests Test 04/11/21 09:30 04/11/21 09:35 Urine Collection Type Unknown Urine Color Yellow Urine Clarity Clear Urine pH 6.5 Urine Specific [place] 1.015 Urine Protein Negative mg/dL Urine Glucose (UA) Negative mg/dL Urine Ketones (Stick) Negative mg/dL Urine Blood Trace Urine Nitrite Negative Urine Bilirubin Negative Urine Urobilinogen Dipstick 0.2 mg/dL Urine Leukocyte Esterase Negative Urine RBC 0 /HPF Urine WBC Occ /HPF Urine Squamous Epithelial Cells Few /LPF Urine Bacteria 0 /HPF Bedside Urine HCG, Qualitative Hcg negative Current Medications Medications (Trade) Dose Ordered Sig/Saima Route PRN Reason Start Time Stop Time Status Last Admin Dose Admin Azithromycin (Zithromax) 1,000 mg 1X ONCE PO 04/11/21 10:15 04/11/21 10:16 Cancel Ceftriaxone Sodium (Rocephin Im) 500 mg 1X ONCE IM 04/11/21 10:15 04/11/21 10:16 DC 04/11/21 10:50 Laboratory Tests Test 04/11/21 09:35 POC Urine HCG, Qualitative Hcg negative (Negative) Vital Signs: Vital Signs Date Time Temp Pulse Resp B/P (MAP) Pulse Ox O2 Delivery O2 Flow Rate FiO2 04/11/21 09:36 98.1 98 18 115/63 (80) 99 Room Air 98.1 (SAMARA MEJIA APRN) EKG: EKG: [] (SAMARA MEJIA APRN) Radiology/Procedures: Radiology/Procedures: [] (SAMARA MEJIA APRN) Course & Med Decision Making: Course & Med Decision Making Pertinent Labs and Imaging studies reviewed. (See chart for details) Pelvic exam completed patient will be treated in the emergency department with Rocephin 500 mg IM will be given an Rx for doxycycline 100 mg twice daily for 7 days. Urine is negative patient informed of lab results patient instructed to take medication at home completely and to follow-up with primary care physician if vaginal discharge continues. Patient verbalized understanding of plan of care and agrees with plan of care. [] (SAMARA MEJIA APRN) Course & Med Decision Making I have reviewed and was available for consultation in the emergency department for this patient that was seen by midlevel provider. Agree with plan. Sreedhar Davenport DO (SREEDHAR DAVENPORT DO) Tamra Disclaimer: Tamra Disclaimer: This electronic medical record was generated, in whole or in part, using a voice recognition dictation system. (SAMARA MEJIA APRN) Departure Departure Impression: Primary Impression: Contact with and (suspected) exposure to infections with a predominantly sexual mode of transmission Additional Impressions: Chlamydia contact Neisseria gonorrheae Disposition: HOME / SELF CARE / HOMELESS Condition: STABLE Referrals: UNKNOWN PCP NAME (PCP) Patient Instructions: Chlamydia, Female, [id number], Gonorrhea, Females and Males Additional Instructions: Take doxycycline 100 mg twice daily by mouth for 7 days No prior unprotected sex for the next 10 days Follow-up with [facility] in the next 7 days if vaginal discharge is no better. SAMARA MEJIA APRN Apr 11, 2021 10:23 SREEDHAR DAVENPORT DO Apr 11, 2021 16:06
[2021-04-11 10:28] LABS: BILIRUBIN,URINE NEGATIVE (NEG); CLARITY,URINE CLEAR; COLOR,URINE YELLOW; NITRITE,URINE NEGATIVE (NEG); PH,URINE 6.5 (<5.0-8.0); PROTEIN,URINE NEGATIVE (NEG-TRACE); UROBILINOGEN,URINE 0.2 mg/dL (0.2 mg/dL)
[2021-04-11 10:56] LABS: BACTERIA,URINE 0 /HPF (0-FEW); RBC,URINE 0 /HPF (0-2); WBC,URINE OCC /HPF (0-4)
[2021-04-11] MEDS ORDERED: DOXY-181 PO ×2 (11:16→11:18)
[2021-04-11] MEDS ORDERED: DOXY100C3 PO (11:23)
[2021-04-14 20:08] LABS: GC PROBE Negative (Negative)
== END 2021-04-11 11:35 | disposition home or self-care (01) ==
LOC: ER 09:13
DX: Z20.2 Contact with and (suspected) exposure to infections with a predominantly sexual mode of transmission (principal); Z87.440 Personal history of urinary (tract) infections
CPT/HCPCS: 81001; 81025; 87491; 87591; 96372; 99284; J0696